=== PATIENT | male | born 1990 | race Caucasian/White ===

== ENCOUNTER → 2016-08-17 | Outpatient (CLI) | payer OTHER, BC | LOC: BHSO 08:48 | DX: F90.0 Attention-deficit hyperactivity disorder, predominantly inattentive type (principal) ==

== ENCOUNTER → 2016-09-10 | Outpatient (CLI) | payer BC | LOC: BHSO 08:41 | DX: F90.0 Attention-deficit hyperactivity disorder, predominantly inattentive type (principal) ==

== ENCOUNTER → 2016-10-08 | Outpatient (CLI) | payer BC | LOC: BHSO 09:22 | DX: F90.0 Attention-deficit hyperactivity disorder, predominantly inattentive type (principal) ==

== ENCOUNTER → 2016-10-19 | Outpatient (CLI) | payer BC | LOC: BHSO 08:42 | DX: F90.0 Attention-deficit hyperactivity disorder, predominantly inattentive type (principal) ==

== ENCOUNTER → 2016-11-19 | Outpatient (CLI) | payer BC | LOC: BHSO 08:23 | DX: F90.0 Attention-deficit hyperactivity disorder, predominantly inattentive type (principal) ==

== ENCOUNTER → 2017-01-07 | Outpatient (CLI) | payer BC | LOC: BHSO 09:23 | DX: F90.0 Attention-deficit hyperactivity disorder, predominantly inattentive type (principal) ==

== ENCOUNTER → 2017-02-06 | Outpatient (CLI) | payer BC | LOC: BHSO 08:43 | DX: F90.0 Attention-deficit hyperactivity disorder, predominantly inattentive type (principal) ==